=== PATIENT | female | born 1980 | race Two or more races ===

== ENCOUNTER 2022-10-21 08:36 | Emergency (ER) | payer SELFPAY ==
[~2022-10-21] VITALS: Ht 170.2 cm; Wt 71.5 kg
[2022-10-21 09:22] VITALS: BP 124/96
[2022-10-21] MEDS ORDERED: KETOROLAC TROMETH 60MG/2ML VIAL IM ONE (09:45)
[2022-10-21] MEDS ORDERED: HYDROcodone-ACET 10/325MG TAB PO ONE (09:45)
[2022-10-21] MEDS ORDERED: IBUP800T26 PO (10:52)
[2022-10-21] MEDS ORDERED: HYDR-4798 PO (10:52)
== END 2022-10-21 10:54 | disposition home or self-care (01) ==
LOC: ER 08:36
DX: M54.16 Radiculopathy, lumbar region (principal)
CPT/HCPCS: 72100; 96372; 99283; J1885